=== PATIENT | male | born 1950 | race Caucasian/White ===

== ENCOUNTER → 2020-10-26 | Outpatient (CLI) | payer MEDICARE | END | disposition home or self-care (01) | LOC: US 16:00 | PROVIDERS: ATTEND Urology | DX: N20.0 Calculus of kidney (principal) ==

== ENCOUNTER 2021-02-24 13:42 | Emergency (ER) | payer MEDICARE ==
[2021-02-24] MEDS ORDERED: CEPHALEXIN500 M1 PO (14:47)
== END 2021-02-24 16:14 | disposition home or self-care (01) ==
LOC: ED 13:42
DX: S81.811A Laceration without foreign body, right lower leg, initial encounter (principal); X58.XXXA Exposure to other specified factors, initial encounter; Y93.89 Activity, other specified; Y92.89 Other specified places as the place of occurrence of the external cause; Y99.8 Other external cause status